=== PATIENT | male | born 2000 | race African-American/Black ===

== ENCOUNTER 2018-07-26 14:04 | Observation (INO) | payer OTHER ==
[2018-07-26] MEDS ORDERED: SODIUM CHLORIDE 0.9% 1,000 ML IV STA (14:56)
[2018-07-26] MEDS ORDERED: KETOROLAC 30 MG/ML 1 ML VIAL IVP STA (14:56)
--- NOTE | 2018-07-26 14:59 | ED ---
General Adult HPI <Leander Amado - Last Filed: 07/26/18 19:29> - General Source: patient, RN notes reviewed Mode of arrival: ambulatory Limitations: no limitations <Jose cSales - Last Filed: 07/27/18 00:14> - General Chief complaint: Abdominal Pain Stated complaint: Abd pain Time Seen by Provider: 07/26/18 14:52 - History of Present Illness Initial comments: 18-year-old male presents to the emergency department for a chief complaint of abdominal pain times one day. Patient states he woke up with this pain. Patient describes as a sharp shooting pain in the left lower quadrant. States he had a normal bowel movement yesterday. No hematochezia or melena. No diarrhea or nausea or vomiting. Patient states pain is better when he is lying still and worse when he is up moving and when he extends his abdomen. Denies any trauma. Patient denies any dysuria or hematuria. No fevers or chills. Patient denies any history of abdominal pathologies or surgeries.Patient has no other complaints at this time including shortness of breath, chest pain, abdominal pain, nausea or vomiting, headache, or visual changes. (Jose Scales) - Related Data Home Medications Medication Instructions Recorded Confirmed No Known Home Medications 07/26/18 07/26/18 Allergies Allergy/AdvReac Type Severity Reaction Status Date / Time morphine Allergy Unknown Verified 07/26/18 15:15 oxycodone [From OxyContin] Allergy Unknown Verified 07/26/18 15:15 Review of Systems ROS Other: All systems not noted in ROS Statement are negative. <Leander Amado - Last Filed: 07/26/18 19:29> ROS Other: All systems not noted in ROS Statement are negative. <Jose Scales - Last Filed: 07/27/18 00:14> ROS Statement: Those systems with pertinent positive or pertinent negative responses have been documented in the HPI. Past Medical History History of Any Multi-Drug Resistant Organisms: None Reported Past Surgical History: Orthopedic Surgery Past Psychological History: No Psychological Hx Reported Smoking Status: Current every day smoker Past Alcohol Use History: Occasional Past Drug Use History: None Reported <Jose Scales - Last Filed: 07/27/18 00:14> General Exam Limitations: no limitations General appearance: alert, in no apparent distress Head exam: Present: atraumatic, normocephalic, normal inspection Eye exam: Present: normal appearance, PERRL, EOMI. Absent: scleral icterus, c onjunctival injection, periorbital swelling ENT exam: Present: normal exam, mucous membranes moist Neck exam: Present: normal inspection, full ROM. Absent: tenderness, meningismus, lymphadenopathy Respiratory exam: Present: normal lung sounds bilaterally. Absent: respiratory distress, wheezes, rales, rhonchi, stridor Cardiovascular Exam: Present: regular rate, normal rhythm, normal heart sounds. Absent: systolic murmur, diastolic murmur, rubs, gallop, clicks GI/Abdominal exam: Present: soft, tenderness (minimal LLQ and suprapubic tenderness without guarding. No RLQ tenderness or upper abdominal tenderness), normal bowel sounds. Absent: distended, guarding, rebound, rigid Expanded GI/Abdominal exam: Absent: psoas sign, obturator sign, heel tap sign, Mcmillan's sign, Rovsing's sign, tenderness at McBurney's Point <Jose Scales - Last Filed: 07/27/18 00:14> Course <Leander Amado - Last Filed: 07/26/18 19:29> Vital Signs 07/26/18 07/26/18 07/26/18 14:13 17:10 17:55 Temperature 98.9 F 98.7 F Pulse Rate 102 H 100 Respiratory 18 18 Rate Blood Pressure 164/90 144/78 O2 Sat by Pulse 99 98 Oximetry 07/26/18 07/26/18 18:35 18:39 Temperature Pulse Rate 100 Respiratory 17 18 Rate Blood Pressure 140/80 O2 Sat by Pulse 99 Oximetry - Reevaluation(s) Reevaluation #1: 07/26/18 19:[address]chugh following CT results. CT results are nonspecific however do question appendicitis. CT report please. Case was also discussed with Dr. Amezcua, who would like computed tomography scan with oral contrast and will follow-up with results and patient. (Leander Amado) Medical Decision Making - Lab Data Result diagrams: 07/26/18 15:58 07/26/18 15:58 <Leander Amado - Last Filed: 07/26/18 19:29> - Lab Data Result diagrams: 07/26/18 15:58 07/26/18 15:58 <Jose Scales - Last Filed: 07/27/18 00:14> - Medical Decision Making patient reevaluated by myself, Dr. Amado. Patient states onset of symptoms was just today. Abdomen is soft with mild to moderate tenderness in the suprapubic region. Patient does have elevated white blood cell count and some thrombocytopenia. Urinalysis appears as urinary tract infection. Computed abby graphy scan of the abdomen pelvis will be ordered to rule out any other cause of patient's symptoms. Case was discussed with Dr. Mchugh, covering for hospital call, who will admit. Patient denies any genital pain or swelling or redness. (Leander Amado) 18-year-old male presents to the emergency determine for chief complaint of abdominal pain times one day. Describes it as a sharp shooting pain in the left lower quadrant. States he is having normal bowel movements without diarrhea. No nausea or vomiting. No fevers or chills. Patient does have suprapubic and left lower quadrant tenderness noted. BC does show a white count of 33.7 with a platelet count of 96. CMP is unremarkable. Urine shows moderate blood with large leukocyte esterase and greater than 182 white cells and red blood cells. Urine was cultured and gonorrhea and Chlamydia was added. She was started on Rocephin and CT abdomen and pelvis was ordered. 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 These results were discussed with Dr. Mchugh. Surgery was consulted. Unasyn was started. Repeat CT is pending. (Jose Scales) - Lab Data Lab Results 07/26/18 07/26/18 07/26/18 Range/Units 15:58 15:58 16:43 WBC 33.7 H (4.0-11.0) k/uL RBC 5.28 (4.30-5.90) m/uL Hgb 14.8 (13.0-17.5) gm/dL Hct 45.2 (39.0-53.0) % MCV 85.6 (80.0-100.0) fL MCH 28.1 (25.0-35.0) pg MCHC 32.8 (31.0-37.0) g/dL RDW 15.6 H (11.5-15.5) % Plt Count 96 L (150-450) k/uL Neutrophils % 90 % Lymphocytes % 4 % Monocytes % 4 % Eosinophils % 2 % Basophils % 0 % Neutrophils # 30.3 H (1.3-7.7) k/uL Lymphocytes # 1.3 (1.0-4.8) k/uL Monocytes # 1.2 H (0-1.0) k/uL Eosinophils # 0.7 (0-0.7) k/uL Basophils # 0.1 (0-0.2) k/uL Sodium 139 (137-145) mmol/L Potassium 4.4 (3.5-5.1) mmol/L Chloride 106 (98-107) mmol/L Carbon Dioxide 21 L (22-30) mmol/L Anion Gap 12 mmol/L BUN 11 (9-20) mg/dL Creatinine 0.50 L (0.66-1.25) mg/dL Est GFR (CKD-EPI)AfAm >90 (>60 ml/min/1.73 sqM) Est GFR (CKD-EPI)NonAf >90 (>60 ml/min/1.73 sqM) Glucose 75 (74-99) mg/dL Calcium 9.8 (8.4-10.2) mg/dL Total Bilirubin 0.9 (0.2-1.3) mg/dL AST 24 (17-59) U/L ALT 15 L (21-72) U/L Alkaline Phosphatase 110 (38-126) U/L Total Protein 8.6 H (6.3-8.2) g/dL Albumin 4.6 (3.5-5.0) g/dL Amylase 63 (30-110) U/L Lipase 65 (23-300) U/L Urine Color Yellow Urine Appearance Turbid (Clear) Urine pH 7.5 (5.0-8.0) Ur Specific [place] 1.022 (1.001-1.035) Urine Protein 2+ H (Negative) Urine Glucose (UA) Negative (Negative) Urine Ketones 3+ H (Negative) Urine Blood Moderate H (Negative) Urine Nitrite Negative (Negative) Urine Bilirubin Negative (Negative) Urine Urobilinogen <2.0 (<2.0) mg/dL Ur Leukocyte Esterase Large H (Negative) Urine RBC >182 H (0-5) /hpf Urine WBC >182 H (0-5) /hpf Urine Mucus Rare H (None) /hpf Disposition <Leander Amado - Last Filed: 07/26/18 19:29> Is patient prescribed a controlled substance at d/c from ED?: No Time of Disposition: 18:18 <Jose Scales - Last Filed: 07/27/18 00:14> Clinical Impression: Urinary tract infection, Leukocytosis Disposition: ADMITTED IP TO THIS HOSP Condition: Fair
[2018-07-26 16:07] LABS: Basophils # (A) 0.1 k/uL (0-0.2); Basophils % (A) 0 %; Eosinophils # (A) 0.7 k/uL (0-0.7); Eosinophils % (A) 2 %; HCT 45.2 % (39.0-53.0); HGB 14.8 gm/dL (13.0-17.5); Lymphocytes # (A) 1.3 k/uL (1.0-4.8); Lymphocytes % (A) 4 %; MCH 28.1 pg (25.0-35.0); MCHC 32.8 g/dL (31.0-37.0); MCV 85.6 fL (80.0-100.0); Mean Platelet Volume 6.9; Monocytes # (A) 1.2 k/uL (0-1.0); Monocytes % (A) 4 %; Neutrophils # (A) 30.3 k/uL (1.3-7.7); Neutrophils % (A) 90 %; RBC 5.28 m/uL (4.30-5.90); RDW 15.6 % (11.5-15.5); WBC 33.7 k/uL (4.0-11.0)
[2018-07-26 16:16] LABS: ALT 15 U/L (21-72); AST 24 U/L (17-59); Albumin 4.6 g/dL (3.5-5.0); Alkaline Phosphatase 110 U/L (38-126); Amylase 63 U/L (30-110); Anion Gap 12 mmol/L; Blood Urea Nitrogen 11 mg/dL (9-20); Calcium 9.8 mg/dL (8.4-10.2); Carbon Dioxide 21 mmol/L (22-30); Chloride 106 mmol/L (98-107); Glucose 75 mg/dL (74-99); Lipase 65 U/L (23-300); Potassium 4.4 mmol/L (3.5-5.1); Sodium 139 mmol/L (137-145); Total Bilirubin 0.9 mg/dL (0.2-1.3); Total Protein 8.6 g/dL (6.3-8.2)
--- NOTE | 2018-07-26 16:34 | XR ---
EXAMINATION TYPE: XR KUB DATE OF EXAM: 07/26/2018 COMPARISON: 03-14 HISTORY: Pain TECHNIQUE: Upright single abdominal pelvic radiograph FINDINGS: Visualized lung bases and pleural spaces are negative. There is no pneumoperitoneum. There is no pneumatosis. The bowel gas pattern is within normal limits. There are no definite acute skeleta l or soft tissue findings. IMPRESSION: Negative examination.
[2018-07-26 17:00] LABS: Platelet Count 96 k/uL (150-450)
[2018-07-26 17:01] LABS: Appearance,Urine Turbid (Clear); Bilirubin,Urine Negative (Negative); Blood,Urine Moderate (Negative); Color,Urine Yellow; Glucose,Urine (UA) Negative (Negative); Ketones,Urine 3+ (Negative); Leukocyte Esterase,Urine Large (Negative); Mucus,Urine Rare /hpf; Nitrite,Urine Negative (Negative); PH, Urine 7.5 (5.0-8.0); Protein,Urine 2+ (Negative); RBC,Urine >182 /hpf (0-5); Specific Gravity,Urine 1.022 (1.001-1.035); Urobilinogen,Urine <2.0 mg/dL (<2.0); WBC,Urine >182 /hpf (0-5)
[2018-07-26] MEDS ORDERED: cefTRIAXone IN SWFI 1,000 MG/10 ML SYRINGE IVP STA (17:03)
[2018-07-26] MEDS ORDERED: NALOXONE 0.4 MG/ML 1 ML VIAL IV PRN (17:46)
[2018-07-26] MEDS ORDERED: ONDANSETRON 4 MG/2 ML VIAL IVP PRN (17:46)
[2018-07-26] MEDS ORDERED: HYDROmorphone 0.5 MG/0.5 ML SYRINGE IVP STA (17:47)
[2018-07-26] MEDS: SODIUM CHLORIDE 0.9% 1,000 ML IV SCH (18:36)
--- NOTE | 2018-07-26 19:05 | P.HPIM ---
History of Present Illness Patient is a very pleasant 18-year-old gentleman came in with comments of abdominal pain in the left lower quadrant and subpubic area with significantly abnormal urine with large leukocyte esterase increased white blood cell count in creased WBC count. 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 Patient also denied any dysuria denied any fever chills patient and patient pain is better controlled. His pain is sharp shooting moderate to severe denied any diarrhea denied any nausea vomiting. Review of Systems REVIEW OF SYSTEMS: CONSTITUTIONAL: No fever, no malaise, no fatigue. HEENT: No recent visual problems or hearing problems. Denied any sore throat. CARDIOVASCULAR: No chest pain, orthopnea, PND, no palpitations, no syncope. PULMONARY: No shortness of breath, no cough, no hemoptysis. GASTROINTESTINAL: As mentioned in HPI NEUROLOGICAL: No headaches, no weakness, no numbness. HEMATOLOGICAL: Denies any bleeding or petechiae. GENITOURINARY: Denies any burning micturition, frequency, or urgency. MUSCULOSKELETAL/RHEUMATOLOGICAL: Denies any joint pain, swelling, or any muscle pain. ENDOCRINE: Denies any polyuria or polydipsia. The rest of the 14-point review of systems is negative. Past Medical History History of Any Multi-Drug Resistant Organisms: None Reported Past Surgical History: Orthopedic Surgery Past Psychological History: No Psychological Hx Reported Smoking Status: Current every day smoker Past Alcohol Use History: Occasional Past Drug Use History: None Reported Medications and Allergies Home Medications Medication Instructions Recorded Confirmed Type No Known Home Medications 07/26/18 07/26/18 History Allergies Allergy/AdvReac Type Severity Reaction Status Date / Time morphine Allergy Unknown Verified 07/26/18 15:15 oxycodone [From OxyContin] Allergy Unknown Verified 07/26/18 15:15 Physical Exam Vitals: Vital Signs Temp Pulse Resp BP Pulse Ox 07/26/18 18:39 100 18 140/80 99 07/26/18 17:55 98.7 F 07/26/18 17:10 100 18 144/78 98 07/26/18 14:13 98.9 F 102 H 18 164/90 99 Intake and Output 07/26/18 07/26/18 07/26/18 06:59 14:59 22:59 Other: Weight 44.452 kg PHYSICAL EXAMINATION: GENERAL: The patient is alert and oriented x3, not in any acute distress. Thin built HEENT: Pupils are round and equally reacting to light. EOMI. No scleral icterus. No conjunctival pallor. Normocephalic, atraumatic. No pharyngeal erythema. No thyromegaly. CARDIOVASCULAR: S1 and S2 present. No murmurs, rubs, or gallops. PULMONARY: Chest is clear to auscultation, no wheezing or crackles. ABDOMEN: Soft, nontender, nondistended, normoactive bowel sounds. No palpable organomegaly. MUSCULOSKELETAL: No joint swelling or deformity. EXTREMITIES: Patient has absent radius, TAR syndrome NEUROLOGICAL: Gross neurological examination did not reveal any focal deficits. SKIN: No rashes. Results CBC & Chem 7: 07/26/18 15:58 07/26/18 15:58 Labs: Abnormal Lab Results - Last 24 Hours (Table) 07/26/18 07/26/18 07/26/18 Range/Units 15:58 15:58 16:43 WBC 33.7 H (4.0-11.0) k/uL RDW 15.6 H (11.5-15.5) % Plt Count 96 L (150-450) k/uL Neutrophils # 30.3 H (1.3-7.7) k/uL Monocytes # 1.2 H (0-1.0) k/uL Carbon Dioxide 21 L (22-30) mmol/L Creatinine 0.50 L (0.66-1.25) mg/dL ALT 15 L (21-72) U/L Total Protein 8.6 H (6.3-8.2) g/dL Urine Protein 2+ H (Negative) Urine Ketones 3+ H (Negative) Urine Blood Moderate H (Negative) Ur Leukocyte Esterase Large H (Negative) Urine RBC >182 H (0-5) /hpf Urine WBC >182 H (0-5) /hpf Urine Mucus Rare H (None) /hpf Assessment and Plan Plan: -Sepsis: Cannot rule out urinary tract infection but we need to rule out an abscess in the abdomen as well. Patients with the thrombocytopenia and absent radius syndrome unknown to have renal abnormalities that can lead to urinary tract infection. Will also rule out any significant abscess although patient does not have any rebound or rigidity. Obtaining a CAT scan of the abdomen can you with Toradol and Rocephin for now -Leukocytosis secondary to infection as mentioned above -Thrombocytopenia secondary to thrombocytopenia absent radius syndrome patient does not have any petechiae or bleeding at this time. -Nicotine abuse: Counseling was provided
--- NOTE | 2018-07-26 19:10 | CT ---
EXAMINATION TYPE: CT abdomen pelvis w con DATE OF EXAM: 07/26/2018 COMPARISON: None HISTORY: Pelvic pain with diarrhea. Known UTI CT DLP: 415 mGycm Automated exposure control for dose reduction was used. TECHNIQUE: Helical acquisition of images was performed from the lung bases through the pelvis. CONTRAST: Performed without Oral Contrast and with IV Contrast, patient injected with 80 mL of Isovue 370. FINDINGS: LUNG BASES: No significant abnormality is appreciated. LIVER/GB: No significant abnormality is appreciated. PANCREAS: No significant abnormality is seen. SPLEEN: No significant abnormality is seen. ADRENALS: No significant abnormality is seen. KIDNEYS: There is absence of the right kidney, but the right adrenal is present. The left kidney is h ypertrophied, likely compensatory. Left kidney measures approximately 11 x 7 x 6 cm and has normal ap pearance. RETROPERITONEAL ADENOPATHY: None visualized REPRODUCTIVE ORGANS: No significant abnormality is seen URINARY BLADDER: No significant abnormality is seen. PELVIC ADENOPATHY: None visualized. OSSEOUS STRUCTURES: No significant abnormality is seen. BOWEL: There is a fine reticular pattern of increased density in the right lower quadrant, anterior to the right lateral conal fascia. This is associated with small volume of peritoneal fluid deep with in the pelvis, greater on the right. The appendix cannot be visualized due to crowded unopacified bow el loops in the right lower quadrant, but appears to be in the lower pelvis near McBurney point. Ther e is no bowel obstruction. No pneumatosis or pneumoperitoneum. OTHER: There are no acute vascular findings. IMPRESSION: 1) Findings suspicious for a clinical diagnosis of appendicitis. If these nonspecific findings kate borate clinically, would advise oral contrast and 1.[address] imaging of the pelvis with 1 mm slice axial imaging. 2) Absent right kidney.
[2018-07-26] MEDS: IOPAMIDOL-300 CONTRAST 30 ML VIAL (ORAL USE) PO PRN ×2 (20:00→20:30)
--- NOTE | 2018-07-26 21:22 | P.GSCN ---
History of Present Illness Consult date: 07/26/18 History of present illness: 18-year-old male presented to the emergency department with complaints of abdominal pain in the left lower quadrant and suprapubic area. He states that the pain began this morning soon after he woke up. He denies having any bowel movement today. He denies any nausea. He denies any emesis. He does believe that his appetite is slightly decreased. He states his last bowel movement was yesterday. He denies any fevers. He denies any dysuria. He denies any hematuria. He denies any shortness of breath. He has no additional complaints at this time. CT of the abdomen and pelvis was performed by the emergency department and the Tho did suggest that the appendix cannot be visualized due to crowded unopacified bowel loops in the right lower quadrant. Due to this finding, the impression was read as finding suspicious for clinical diagnosis of appendicitis. 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 He denies any right lower quadrant pain. Review of Systems All systems: negative Past Medical History Additional Past Medical History / Comment(s): absent radious syndrome. History of Any Multi-Drug Resistant Organisms: None Reported Past Surgical History: Orthopedic Surgery Additional Past Surgical History / Comment(s): 8 ortho surgeries on BLLE (legs). Past Anesthesia/Blood Transfusion Reactions: No Reported Reaction Past Psychological History: No Psychological Hx Reported Smoking Status: Current every day smoker Past Alcohol Use History: Occasional Past Drug Use History: None Reported Medications and Allergies Home Medications Medication Instructions Recorded Confirmed Type No Known Home Medications 07/26/18 07/26/18 History Allergies Allergy/AdvReac Type Severity Reaction Status Date / Time morphine Allergy Unknown Verified 07/26/18 15:15 oxycodone [From OxyContin] Allergy Unknown Verified 07/26/18 15:15 Surgical - Exam Osteopathic Statement: *. No significant issues noted on an osteopathic structural exam other than those noted in the History and Physical/Consult. Vital Signs Temp Pulse Resp BP Pulse Ox 98.9 F 102 H 18 164/90 99 07/26/18 14:13 07/26/18 14:13 07/26/18 14:13 07/26/18 14:13 07/26/18 14:13 - General well nourished, no distress - Eyes PERRL - ENT normal mucosa, no hearing loss - Neck no masses, trachea midline - Respiratory No difficulty with respiration - Abdomen Soft, mild tenderness to palpation in the left lower quadrant and suprapubic region, no tenderness in the right lower quadrant palpation, no tenderness throughout the abdomen to percussion, nondistended, no rebound, no guarding - Psychiatric oriented to time, oriented to person, oriented to place Results - Labs 07/26/18 15:58 07/26/18 15:58 Abnormal Lab Results - Last 24 Hours (Table) 07/26/18 07/26/18 07/26/18 Range/Units 15:58 15:58 16:43 WBC 33.7 H (4.0-11.0) k/uL RDW 15.6 H (11.5-15.5) % Plt Count 96 L (150-450) k/uL Neutrophils # 30.3 H (1.3-7.7) k/uL Monocytes # 1.2 H (0-1.0) k/uL Carbon Dioxide 21 L (22-30) mmol/L Creatinine 0.50 L (0.66-1.25) mg/dL ALT 15 L (21-72) U/L Total Protein 8.6 H (6.3-8.2) g/dL Urine Protein 2+ H (Negative) Urine Ketones 3+ H (Negative) Urine Blood Moderate H (Negative) Ur Leukocyte Esterase Large H (Negative) Urine RBC >182 H (0-5) /hpf Urine WBC >182 H (0-5) /hpf Urine Mucus Rare H (None) /hpf Diabetes panel 07/26/18 Range/Units 15:58 Sodium 139 (137-145) mmol/L Potassium 4.4 (3.5-5.1) mmol/L Chloride 106 (98-107) mmol/L Carbon Dioxide 21 L (22-30) mmol/L BUN 11 (9-20) mg/dL Creatinine 0.50 L (0.66-1.25) mg/dL Glucose 75 (74-99) mg/dL Calcium 9.8 (8.4-10.2) mg/dL AST 24 (17-59) U/L ALT 15 L (21-72) U/L Alkaline Phosphatase 110 (38-126) U/L Total Protein 8.6 H (6.3-8.2) g/dL Albumin 4.6 (3.5-5.0) g/dL Calcium panel 07/26/18 Range/Units 15:58 Calcium 9.8 (8.4-10.2) mg/dL Albumin 4.6 (3.5-5.0) g/dL Pituitary panel 07/26/18 Range/Units 15:58 Sodium 139 (137-145) mmol/L Potassium 4.4 (3.5-5.1) mmol/L Chloride 106 (98-107) mmol/L Carbon Dioxide 21 L (22-30) mmol/L BUN 11 (9-20) mg/dL Creatinine 0.50 L (0.66-1.25) mg/dL Glucose 75 (74-99) mg/dL Calcium 9.8 (8.4-10.2) mg/dL Adrenal panel 07/26/18 Range/Units 15:58 Sodium 139 (137-145) mmol/L Potassium 4.4 (3.5-5.1) mmol/L Chloride 106 (98-107) mmol/L Carbon Dioxide 21 L (22-30) mmol/L BUN 11 (9-20) mg/dL Creatinine 0.50 L (0.66-1.25) mg/dL Glucose 75 (74-99) mg/dL Calcium 9.8 (8.4-10.2) mg/dL Total Bilirubin 0.9 (0.2-1.3) mg/dL AST 24 (17-59) U/L ALT 15 L (21-72) U/L Alkaline Phosphatase 110 (38-126) U/L Total Protein 8.6 H (6.3-8.2) g/dL Albumin 4.6 (3.5-5.0) g/dL - Imaging CT scan - abdomen: report reviewed, image reviewed (Report reviewed of appendix cannot be visualized due to carotid unopacified bowel loops in the right lower quadrant. Impression noted of finding suspicious for a clinical diagnosis of appendicitis.) Assessment and Plan (1) Abdominal pain Narrative/Plan: 18-year-old male with leukocytosis and abdominal pain - I did review the CT of the abdomen and pelvis and did review the results per the radiologist of a appendix not being visualized, however finding suspicious for clinical diagnosis of appendicitis. The radiologist did recommend a repeat CT of the pelvis 1.5 hours after oral contrast is administered. We will perform this study for further evaluation as the patient does not clinically appear to have appendicitis. He does not have tenderness in the right lower quadrant. He is nontender to percussion and does not have any rebound or guarding. After e valuation of the urinalysis, patient does appear to have urinary tract infection. - Further surgical recommendations after repeat computed tomography scan of the pelvis, per radiology - Keep nothing by mouth for now Current Visit: Yes Status: Acute Code(s): R10.9 - UNSPECIFIED ABDOMINAL PAIN SNOMED Code(s): 80209360
--- NOTE | 2018-07-26 21:37 | CT ---
EXAMINATION TYPE: CT pelvis wo IV con, but with oral con DATE: 07/26/2008 at 8:59 PM HISTORY: RLQ pain COMPARISON: Follow-up CT sequence; the initial CT 16 6:[address] DLP: 196.3 mGycm Automated exposure control for dose reduction was used. FINDINGS: The oral contrast opacifies the stomach, small bowel, and colon to the level of the splenic flexure. Oral contrast also fills the appendix, which has normal appearance. The left ureter is opacified throughout its extent, in the upper and lower systems are normal appeara nce. Remainder of the pelvic contents are unremarkable. No incidentals. IMPRESSION: OVERALL CT IMPRESSION IS NO ACUTE PROCESS. SPECIFICALLY, NEGATIVE FOR APPENDICITIS.
[2018-07-26] MEDS ORDERED: KETOROLAC 30 MG/ML 1 ML VIAL IVP PRN (22:00)
[2018-07-26] MEDS: AMPICILLIN-SULBACTAM 3 GM in SODIUM CHLORIDE 0.9% 100 ML IVPB SCH (22:00)
[2018-07-26] MEDS: FAMOTIDINE 20 MG TAB PO SCH (22:15)
[2018-07-27] MEDS: AMPICILLIN-SULBACTAM 3 GM in SODIUM CHLORIDE 0.9% 100 ML IVPB SCH ×4 (00:30→20:08)
[2018-07-27] MEDS: SODIUM CHLORIDE 0.9% 1,000 ML IV SCH ×2 (02:48→20:09)
[2018-07-27] MEDS: FAMOTIDINE 20 MG TAB PO SCH ×2 (10:51→20:08)
[2018-07-27 12:01] VITALS: BMI 18.5
[2018-07-27 12:40] LABS: Basophils # (A) 0.1 k/uL (0-0.2); Basophils % (A) 0 %; Eosinophils # (A) 0.4 k/uL (0-0.7); Eosinophils % (A) 2 %; HCT 39.6 % (39.0-53.0); HGB 13.2 gm/dL (13.0-17.5); Lymphocytes # (A) 1.8 k/uL (1.0-4.8); Lymphocytes % (A) 7 %; MCH 28.2 pg (25.0-35.0); MCHC 33.2 g/dL (31.0-37.0); MCV 84.8 fL (80.0-100.0); Mean Platelet Volume 8.3; Monocytes # (A) 1.1 k/uL (0-1.0); Monocytes % (A) 4 %; Neutrophils # (A) 21.9 k/uL (1.3-7.7); Neutrophils % (A) 86 %; RBC 4.67 m/uL (4.30-5.90); RDW 15.5 % (11.5-15.5); WBC 25.4 k/uL (4.0-11.0)
[2018-07-27 12:51] LABS: Anion Gap 7 mmol/L; Blood Urea Nitrogen 6 mg/dL (9-20); Calcium 9.1 mg/dL (8.4-10.2); Carbon Dioxide 21 mmol/L (22-30); Chloride 111 mmol/L (98-107); Glucose 97 mg/dL (74-99); Sodium 139 mmol/L (137-145)
[2018-07-27 12:58] LABS: Platelet Count 86 k/uL (150-450)
[2018-07-27 13:20] LABS: Potassium 4.7 mmol/L (3.5-5.1)
[2018-07-27 14:47] LABS: C. trachomatis,PCR Negative (Neg,Equiv); Chlamydia trachomatis Source Urine; N. gonorrhoeae,PCR Positive (Neg,Equiv); Neisseria Source Urine
--- NOTE | 2018-07-27 16:20 | P.PN ---
Subjective Patient came in with possible urinary tract infection leukocytosis leukocytosis improving urine cultures are pending. Initial CAT scan was read as possibility of appendicitis please refer to Gen. surgery dictation regarding this patient clinically does not appear to have appendicitis. No appendectomy is being planned at this time. Patient wanted to be discharged feeling well. I will wait for urine cultures and tomorrow morning if I don't get cultures tomorrow patient will be discharged on a brick antibiotics and will follow cultures later on and if needed will change the antibiotic accordingly patient is presently on Unasyn which will be continued Constitutional: Denied any fatigue denied any fever. Cardio vascular: denied any chest pain, palpitations Gastrointestinal denied any nausea vomiting Pulmonary: Denied any shortness of breath cough Neurologic denied any new focal deficits All inpatient medications were reviewed and appropriate changes in these medications as dictated in the interval history and assessment and plan. Objective - Vital Signs Vital signs: Vital Signs Temp 98.3 F 07/27/18 08:00 Pulse 83 07/27/18 08:00 Resp 16 07/27/18 08:00 BP 122/64 07/27/18 08:00 Pulse Ox 97 07/27/18 08:00 Intake & Output 07/26/18 07/27/18 07/27/18 18:59 06:59 18:59 Weight 44.452 kg 44.452 kg Other: Voiding Method Toilet Toilet Urinal # Voids 1 1 1 - Exam PHYSICAL EXAMINATION: GENERAL: The patient is alert and oriented x3, not in any acute distress. Thin built HEENT: Pupils are round and equally reacting to light. EOMI. No scleral icterus. No conjunctival pallor. Normocephalic, atraumatic. No pharyngeal erythema. No thyromegaly. CARDIOVASCULAR: S1 and S2 present. No murmurs, rubs, or gallops. PULMONARY: Chest is clear to auscultation, no wheezing or crackles. ABDOMEN: Soft, nontender, nondistended, normoactive bowel sounds. No palpable organomegaly. MUSCULOSKELETAL: No joint swelling or deformity. EXTREMITIES: Patient has absent radius, TAR syndrome NEUROLOGICAL: Gross neurological examination did not reveal any focal deficits. SKIN: No rashes. - Labs CBC & Chem 7: 07/27/18 11:52 07/27/18 11:52 Labs: Abnormal Lab Results - Last 24 Hours (Table) 07/26/18 07/26/18 07/26/18 Range/Units 15:58 15:58 16:43 WBC 33.7 H (4.0-11.0) k/uL RDW 15.6 H (11.5-15.5) % Plt Count 96 L (150-450) k/uL Neutrophils # 30.3 H (1.3-7.7) k/uL Monocytes # 1.2 H (0-1.0) k/uL Chloride (98-107) mmol/L Carbon Dioxide 21 L (22-30) mmol/L BUN (9-20) mg/dL Creatinine 0.50 L (0.66-1.25) mg/dL ALT 15 L (21-72) U/L Total Protein 8.6 H (6.3-8.2) g/dL Urine Protein 2+ H (Negative) Urine Ketones 3+ H (Negative) Urine Blood Moderate H (Negative) Ur Leukocyte Esterase Large H (Negative) Urine RBC >182 H (0-5) /hpf Urine WBC >182 H (0-5) /hpf Urine Mucus Rare H (None) /hpf N.gonorrhoeae DNA Probe (Neg,Equiv) 07/26/18 07/27/18 07/27/18 Range/Units 16:43 11:52 11:52 WBC 25.4 H (4.0-11.0) k/uL RDW (11.5-15.5) % Plt Count 86 L (150-450) k/uL Neutrophils # 21.9 H (1.3-7.7) k/uL Monocytes # 1.1 H (0-1.0) k/uL Chloride 111 H (98-107) mmol/L Carbon Dioxide 21 L (22-30) mmol/L BUN 6 L (9-20) mg/dL Creatinine 0.42 L (0.66-1.25) mg/dL ALT (21-72) U/L Total Protein (6.3-8.2) g/dL Urine Protein (Negative) Urine Ketones (Negative) Urine Blood (Negative) Ur Leukocyte Esterase (Negative) Urine RBC (0-5) /hpf Urine WBC (0-5) /hpf Urine Mucus (None) /hpf N.gonorrhoeae DNA Probe Positive H (Neg,Equiv) Microbiology - Last 24 Hours (Table) 07/26/18 16:43 Urine Culture - Preliminary Urine,Voided Assessment and Plan Plan: -Sepsis: secondary to urinary tract infection 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 Awaiting urine cultures continue with Unasyn -Leukocytosis secondary to infection as mentioned above -Thrombocytopenia secondary to thrombocytopenia absent radius syndrome patient does not have any petechiae or bleeding at this time. -Nicotine abuse: Counseling was provided
[2018-07-28] MEDS: AMPICILLIN-SULBACTAM 3 GM in SODIUM CHLORIDE 0.9% 100 ML IVPB SCH ×3 (01:36→12:10)
[2018-07-28 06:31] LABS: HCT 39.1 % (39.0-53.0); MCH 28.8 pg (25.0-35.0); MCHC 33.2 g/dL (31.0-37.0); MCV 86.8 fL (80.0-100.0); Mean Platelet Volume 7.4; RBC 4.51 m/uL (4.30-5.90); RDW 15.6 % (11.5-15.5); WBC 19.5 k/uL (4.0-11.0)
[2018-07-28 06:39] LABS: Platelet Count 91 k/uL (150-450)
[2018-07-28 06:43] LABS: Anion Gap 9 mmol/L; Blood Urea Nitrogen 5 mg/dL (9-20); Carbon Dioxide 22 mmol/L (22-30); Chloride 109 mmol/L (98-107); Glucose 76 mg/dL (74-99); Sodium 140 mmol/L (137-145)
[2018-07-28 08:18] VITALS: BP 148/82; PULSE 64; RESP 17; TEMP 98.4
[2018-07-28] MEDS: FAMOTIDINE 20 MG TAB PO SCH (09:19)
[2018-07-28] MEDS: SODIUM CHLORIDE 0.9% 1,000 ML IV SCH (09:19)
--- NOTE | 2018-07-28 14:00 | P.DS ---
Providers Date of admission: 07/26/18 17:37 Attending physician: Tad Mchugh Consults: 07/26/18 19:31 Consult Physician Urgent Consulting Provider: Espinoza Amezcua Consult Reason/Comments: abdominal pain Do you want consulting provider notified?: Already Contacted Primary care physician: Stated None Hospital Course: Patient came in with possible urinary tract infection leukocytosis leukocytosis improving urine cultures are pending. Initial CAT scan was read as possibility of appendicitis please refer to Gen. surgery dictation regarding this patient clinically does not appear to have appendicitis. No appendectomy is being planned at this time. Patient wanted to be discharged feeling well. I will wait for urine cultures and tomorrow morning if I don't get cultures tomorrow patient will be discharged on a brick antibiotics and will follow cultures later on and if needed will change the antibiotic accordingly patient is presently on Unasyn which will be continued. 07/28/2018 Urine cultures are negative. Patient will be discharged on February can't biotic ciprofloxacin for 3-5 days. Patient is feeling better no pain. PHYSICAL EXAMINATION: GENERAL: The patient is alert and oriented x3, not in any acute distress. Well developed, well nourished. HEENT: Pupils are round and equally reacting to light. EOMI. No scleral icterus. No conjunctival pallor. Normocephalic, atraumatic. No pharyngeal erythema. No thyromegaly. CARDIOVASCULAR: S1 and S2 present. No murmurs, rubs, or gallops. PULMONARY: Chest is clear to auscultation, no wheezing or crackles. ABDOMEN: Soft, nontender, nondistended, normoactive bowel sounds. No palpable organomegaly. MUSCULOSKELETAL: No joint swelling or deformity. EXTREMITIES: No cyanosis, clubbing, or pedal edema. NEUROLOGICAL: Gross neurological examination did not reveal any focal deficits. SKIN: No rashes. 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 -Leukocytosis secondary to infection as mentioned above, improved now -Thrombocytopenia secondary to thrombocytopenia absent radius syndrome patient does not have any petechiae or bleeding at this time. -Nicotine abuse: Counseling was provided Patient Condition at Discharge: Fair Plan - Discharge Summary Discharge Rx Participant: Yes New Discharge Prescriptions: New Ciprofloxacin HCl [Cipro] 500 mg PO Q12H 5 Days #10 tab Discharge Medication List Ciprofloxacin HCl [Cipro] 500 mg PO Q12H 5 Days #10 tab 07/28/18 [Rx] Follow up Appointment(s)/Referral(s): None,Stated [Primary Care Provider] - 1-2 days Patient Instructions/Handouts: Urinary Tract Infection in Men (DC) Discharge Disposition: HOME SELF-CARE
== END 2018-07-28 14:15 | disposition home or self-care (01) ==
LOC: EC 14:04 → 1SOBS 17:37
PROVIDERS: ADMIT Internal Medicine; ATTEND Internal Medicine
DX: A41.9 Sepsis, unspecified organism (principal); N39.0 Urinary tract infection, site not specified; Q87.2 Congenital malformation syndromes predominantly involving limbs; Q60.0 Renal agenesis, unilateral; D69.59 Other secondary thrombocytopenia; Z88.5 Allergy status to narcotic agent; F17.210 Nicotine dependence, cigarettes, uncomplicated
CPT/HCPCS: 96361 ×2; 96365; 96366 ×2; 96375; 99285; 36415; 80053; 80048 ×2; 82150; 83605; 83690; 85025 ×2; 85027; 81001; 87040; 87491; 87591; 87086; 87661; 74018; 72192; 74177; G0378 ×3; J0696; J1885; J0295 ×3; J1170; Q9967

== ENCOUNTER 2019-10-30 18:45 | Emergency (ER) | payer MEDICARE, OTHER ==
[2019-10-30 18:49] VITALS: PULSE 106; RESP 18; TEMP 98.7
--- NOTE | 2019-10-30 19:01 | ED ---
General Adult HPI - General Chief complaint: Urogenital Stated complaint: Male Time Seen by Provider: 10/30/19 18:55 Source: patient, RN notes reviewed Mode of arrival: ambulatory Limitations: no limitations - History of Present Illness Initial comments: Patient is a pleasant 19-year-old male presenting to the emergency Department with dysuria. No history of similar symptoms previously. Onset of symptoms was a couple days ago. Patient has dysuria. No discomfort other than with urination. Patient is urinating frequently and small amounts. No abdominal pain. No fever or vomiting. Patient states there is some possibility there could've been exposure to STD. - Related Data Previous Rx's Medication Instructions Recorded Ciprofloxacin HCl [Cipro] 500 mg PO Q12H 5 Days #10 tab 07/28/18 Sulfamethox-Tmp 800-160Mg [Bactrim 1 each PO Q12HR #20 tab 10/30/19 DS 800-160 mg] Allergies Allergy/AdvReac Type Severity Reaction Status Date / Time morphine Allergy Unknown Verified 10/30/19 18:49 oxycodone [From OxyContin] Allergy Unknown Verified 10/30/19 18:49 Review of Systems ROS Statement: Those systems with pertinent positive or pertinent negative responses have been documented in the HPI. ROS Other: All systems not noted in ROS Statement are negative. Constitutional: Denies: fever Eyes: Denies: eye pain ENT: Denies: ear pain Respiratory: Denies: cough Cardiovascular: Denies: chest pain Endocrine: Denies: fatigue Gastrointestinal: Denies: abdominal pain Genitourinary: Reports: as per HPI, urgency, dysuria, frequency Musculoskeletal: Denies: back pain Skin: Denies: rash Neurological: Denies: weakness Past Medical History Additional Past Medical History / Comment(s): absent radious syndrome. History of Any Multi-Drug Resistant Organisms: None Reported Past Surgical History: Orthopedic Surgery Additional Past Surgical History / Comment(s): 8 ortho surgeries on BLLE (legs). Past Anesthesia/Blood Transfusion Reactions: No Reported Reaction Past Psychological History: No Psychological Hx Reported Smoking Status: Current every day smoker Past Alcohol Use History: Occasional Past Drug Use History: None Reported General Exam Limitations: no limitations General appearance: alert, in no apparent distress Head exam: Present: normocephalic Eye exam: Present: normal appearance Neck exam: Present: normal inspection Respiratory exam: Present: normal lung sounds bilaterally Cardiovascular Exam: Present: regular rate, normal rhythm GI/Abdominal exam: Present: soft. Absent: tenderness exam: Present: normal inspection Extremities exam: Present: other (Arms are absent) Neurological exam: Present: alert Psychiatric exam: Present: normal affect, normal mood Skin exam: Present: normal color Course Vital Signs 10/30/19 18:45 Temperature 98.7 F Pulse Rate 106 H Respiratory 18 Rate O2 Sat by Pulse 99 Oximetry Medical Decision Making - Medical Decision Making Patient reevaluated and updated. - Lab Data Lab Results 10/30/19 Range/Units 19:01 Urine Color Yellow Urine Appearance Turbid (Clear) Urine pH 6.0 (5.0-8.0) Ur Specific [place] 1.020 (1.001-1.035) Urine Protein 1+ H (Negative) Urine Glucose (UA) Negative (Negative) Urine Ketones Negative (Negative) Urine Blood Moderate H (Negative) Urine Nitrite Negative (Negative) Urine Bilirubin Negative (Negative) Urine Urobilinogen 3.0 (<2.0) mg/dL Ur Leukocyte Esterase Large H (Negative) Urine RBC 23 H (0-5) /hpf Urine WBC >182 H (0-5) /hpf Urine WBC Clumps Many H (None) /hpf Disposition Clinical Impression: Urinary tract infection Disposition: HOME SELF-CARE Condition: Stable Instructions (If sedation given, give patient instructions): Urinary Tract Infection in Men (ED) Additional Instructions: Please follow-up with primary care physician in the next day or 2 for recheck. Have primary care physician review culture results. Return for vomiting, fevers, abdominal pain, worsening symptoms or other concerns. Prescription sent to [facility] on Prescriptions: Sulfamethox-Tmp 800-160Mg [Bactrim DS 800-160 mg] 1 each PO Q12HR #20 tab Is patient prescribed a controlled substance at d/c from ED?: No Referrals: Walter Crabtree [STAFF PHYSICIAN] - 1-2 days Time of Disposition: 19:56
[2019-10-30 19:23] LABS: Appearance,Urine Turbid (Clear); Bilirubin,Urine Negative (Negative); Blood,Urine Moderate (Negative); Color,Urine Yellow; Glucose,Urine (UA) Negative (Negative); Ketones,Urine Negative (Negative); Leukocyte Esterase,Urine Large (Negative); Nitrite,Urine Negative (Negative); Protein,Urine 1+ (Negative); RBC,Urine 23 /hpf (0-5); WBC,Urine >182 /hpf (0-5)
[2019-10-30] MEDS ORDERED: SULFAMETH-TMP DS STARTER PACK 2 TAB BTL PO STA (19:55)
== END 2019-10-30 20:10 | disposition home or self-care (01) ==
LOC: EC 18:45
DX: N39.0 Urinary tract infection, site not specified (principal); F17.200 Nicotine dependence, unspecified, uncomplicated; Z88.5 Allergy status to narcotic agent
CPT/HCPCS: 81001; 87086; 87491; 87591; 99283

== ENCOUNTER → 2019-11-04 | Outpatient (CLI) | payer MEDICARE, OTHER ==
[~2019-11-04] MED LIST: AZITHROMYCIN 500 MG TAB PO STA; cefTRIAXone 250 MG VIAL IM STA
== END | disposition home or self-care (01) ==
LOC: LABMAIN 13:31
PROVIDERS: ATTEND Emergency Medicine
DX: N39.0 Urinary tract infection, site not specified (principal)
CPT/HCPCS: 96372; J0696

== ENCOUNTER 2020-06-24 23:18 | Emergency (ER) | payer MEDICARE, OTHER ==
--- NOTE | 2020-06-25 00:58 | ED ---
Extremity Problem HPI - General Chief complaint: Extremity Problem,Nontraumatic Stated complaint: lt toe/foot swelling/numbness Time Seen by Provider: 06/25/20 00:16 Source: patient, RN notes reviewed, old records reviewed Mode of arrival: ambulatory Limitations: no limitations - History of Present Illness Initial comments: This is a 20-year-old male DF presents today for evaluation of left toe pain. Left foot pain. Patient denies any specific injury though he states he did wear a new pair of shoes is recently and had a sore on his foot from that. Patient has no redness or swelling to that area. He denies any trauma left foot. Otherwise patient has no complaints able to ambulate Callie to bear weight MD Complaint: extremity pain, other (left foot) -: hour(s) Location: left, toe History of Same: No -: Yes arthralgia Radiation: proximal Severity scale (1-10): 3 Quality: aching Consistency: constant Improves with: nothing Worsens with: nothing Associated Symptoms: other (none) - Related Data Previous Rx's Medication Instructions Recorded Ciprofloxacin HCl [Cipro] 500 mg PO Q12H 5 Days #10 tab 07/28/18 Sulfamethox-Tmp 800-160Mg [Bactrim 1 each PO Q12HR #20 tab 10/30/19 DS 800-160 mg] Allergies Allergy/AdvReac Type Severity Reaction Status Date / Time morphine Allergy Unknown Verified 06/24/20 23:30 oxycodone [From OxyContin] Allergy Unknown Verified 06/24/20 23:30 Review of Systems ROS Statement: Those systems with pertinent positive or pertinent negative responses have been documented in the HPI. ROS Other: All systems not noted in ROS Statement are negative. Past Medical History Additional Past Medical History / Comment(s): absent radious syndrome. History of Any Multi-Drug Resistant Organisms: None Reported Past Surgical History: Orthopedic Surgery Additional Past Surgical History / Comment(s): 8 ortho surgeries on BLLE (legs). Past Anesthesia/Blood Transfusion Reactions: No Reported Reaction Past Psychological History: No Psychological Hx Reported Smoking Status: Current every day smoker Past Alcohol Use History: Occasional Past Drug Use History: None Reported General Exam Limitations: no limitations General appearance: alert, in no apparent distress Head exam: Present: atraumatic, normocephalic, normal inspection Eye exam: Present: normal appearance, PERRL, EOMI. Absent: scleral icterus, conjunctival injection, periorbital swelling ENT exam: Present: normal exam, mucous membranes moist Neck exam: Present: normal inspection. Absent: tenderness, meningismus, lymphadenopathy Respiratory exam: Present: normal lung sounds bilaterally. Absent: respiratory distress, wheezes, rales, rhonchi, stridor Cardiovascular Exam: Present: regular rate, normal rhythm, normal heart sounds. Absent: systolic murmur, diastolic murmur, rubs, gallop, clicks GI/Abdominal exam: Present: soft, normal bowel sounds. Absent: distended, tenderness, guarding, rebound, rigid Extremities exam: Present: normal inspection, full ROM, normal capillary refill, other (Left fourth digit pain no significant tenderness noted, no ulcer noted, no erythema). Absent: tenderness, pedal edema, joint swelling, calf tenderness Back exam: Present: normal inspection Neurological exam: Present: alert, oriented X3, CN II-XII intact Psychiatric exam: Present: normal affect, normal mood Skin exam: Present: warm, dry, intact, normal color. Absent: rash Course Vital Signs 06/24/20 06/25/20 23:28 01:56 Temperature 98.5 F 98.7 F Pulse Rate 76 84 Respiratory 16 15 Rate Blood Pressure 164/86 151/74 O2 Sat by Pulse 100 98 Oximetry - Reevaluation(s) Reevaluation #1: Medical record is reviewed Patient symptoms improved here in the ER Patient family informed of results, questions have been answered Patient is in no distress able to bear weight and okay for discharge home Medical Decision Making - Medical Decision Making 20 male to the ER for evaluation patient presents today for evaluation regards to foot pain toe pain. X-rays are negative patient can be discharged home - Radiology Data Radiology results: report reviewed (X-ray of foot is negative for traumatic injury), image reviewed Disposition Clinical Impression: Left foot pain Disposition: HOME SELF-CARE Condition: Good Instructions (If sedation given, give patient instructions): Metatarsalgia (DC) Is patient prescribed a controlled substance at d/c from ED?: No Referrals: Linda Montana MD [Primary Care Provider] - 1-2 days
--- NOTE | 2020-06-25 01:08 | XR ---
EXAM: XR Left Foot Complete, 3 or More Views CLINICAL HISTORY: ITS.REASON XR Reason: pain TECHNIQUE: Frontal, lateral and oblique views of the left foot. COMPARISON: No relevant prior studies available. FINDINGS: Bones/joints: No acute fracture. No dislocation. Soft tissues: Unremarkable. No radiopaque foreign body. IMPRESSION: Normal left foot x-rays.
[2020-06-25 01:58] VITALS: BP 151/74; PULSE 84; RESP 15; TEMP 98.7
== END 2020-06-25 01:56 | disposition home or self-care (01) ==
LOC: EC 23:18
DX: M79.672 Pain in left foot (principal); M79.89 Other specified soft tissue disorders; R20.0 Anesthesia of skin; F17.200 Nicotine dependence, unspecified, uncomplicated; Z88.5 Allergy status to narcotic agent
CPT/HCPCS: 99283

== ENCOUNTER → 2020-10-08 | Outpatient (CLI) | payer MEDICARE, OTHER | END | disposition home or self-care (01) | DX: Q74.1 Congenital malformation of knee (principal) ==

== ENCOUNTER → 2021-08-23 | Outpatient (CLI) | payer MEDICARE, OTHER ==
[2021-08-23 12:56] LABS: ALT 7 U/L (10-49); AST 15 U/L (14-35); African American GFR (CKD) 164.3 (60.0-200.0); Albumin 4.5 g/dL (3.8-4.9); Albumin/Globulin Ratio 1.13 (1.60-3.17); Alkaline Phosphatase 83 U/L (41-126); BUN/Creat Ratio 17.67 Ratio (12.00-20.00); Blood Urea Nitrogen 10.6 mg/dL (9.0-27.0); Calcium 9.9 mg/dL (8.7-10.3); Carbon Dioxide 21.9 mmol/L (20.0-27.5); Chloride 104 mmol/L (96-109); Glucose 82 mg/dL (70-110); Non-African American GFR(CKD) 141.7 (60.0-200.0); Potassium 4.2 mmol/L (3.5-5.5); Sodium 140 mmol/L (135-145); Total Bilirubin <0.15 mg/dL (0.30-1.20); Total Protein 8.5 g/dL (6.2-8.2)
[2021-08-23 15:24] LABS: HCT 45.7 % (39.6-50.0); HGB 14.3 g/dL (13.0-17.0); Immature Platelet Fraction 4.8 % (1.1-6.1); MCHC 31.3 g/dL (32.0-37.0); MCV 86.2 fL (80.0-97.0); Mean Platelet Volume 10.2 fL (9.5-12.2); NRBC Per 100 WBC 0 /100 WBCS (0.0-0.0); Platelet Count 75 X 10*3/uL (140-440); RBC Morphology NORMAL; RDW 14.8 % (11.5-14.5); WBC 15.79 X 10*3/uL (4.50-10.00)
== END | disposition home or self-care (01) ==
LOC: LABWHC1 08-22 10:07
PROVIDERS: ATTEND Internal Medicine
DX: H53.8 Other visual disturbances (principal); R20.2 Paresthesia of skin
CPT/HCPCS: 36415; 80053; 84443; 85027

== ENCOUNTER 2023-05-01 14:36 | Emergency (ER) | payer MEDICARE, OTHER ==
[2023-05-01 15:11] VITALS: TEMP 99
[2023-05-01] MEDS ORDERED: KETOROLAC 15 MG/ML 1 ML VIAL IVP STA (15:18)
[2023-05-01] MEDS ORDERED: SODIUM CHLORIDE 0.9% 1,000 ML IV STA (15:18)
--- NOTE | 2023-05-01 15:24 | ED ---
Abdominal Pain HPI - General Chief Complaint: Abdominal Pain Stated Complaint: Abd. pain Time Seen by Provider: 05/01/23 15:07 Source: patient, RN notes reviewed Mode of arrival: ambulatory Limitations: no limitations - History of Present Illness Initial Comments: This is a 23-year-old male who presents to the emergency department for abdominal pain and back pain. States that over the last couple of months, he has been on 6 rounds of antibiotics for UTIs and has had multiple STD tests, which have returned negative. He continues to have mid back pain and lower abdominal pain as well as burning after he urinates. States that he's had fevers and nigh t sweats. He has also had intermittent bouts of nausea. Prior to the last couple of months, he has not had problems with urinary tract infections. He is taking Tylenol at home for pain relief, which has not been effective. MD Complaint: abdominal pain - Related Data Previous Rx's Medication Instructions Recorded Ciprofloxacin HCl [Cipro] 500 mg PO Q12H 5 Days #10 tab 07/28/18 Sulfamethox-Tmp 800-160Mg [Bactrim 1 each PO Q12HR #20 tab 10/30/19 DS 800-160 mg] Lidocaine 5% Patch [Lidoderm 5% 1 patch TOPICAL DAILY PRN #30 patch 05/01/23 Patch] methocarbamoL [Robaxin-750] 1,500 mg PO TID PRN #30 tab 05/01/23 Allergies Allergy/AdvReac Type Severity Reaction Status Date / Time morphine Allergy Unknown Verified 06/24/20 23:30 oxycodone [From OxyContin] Allergy Unknown Verified 06/24/20 23:30 Review of Systems ROS Statement: Those systems with pertinent positive or pertinent negative responses have been documented in the HPI. ROS Other: All systems not noted in ROS Statement are negative. Past Medical History Additional Past Medical History / Comment(s): absent radious syndrome. anemia History of Any Multi-Drug Resistant Organisms: None Reported Past Surgical History: Orthopedic Surgery Additional Past Surgical History / Comment(s): 8 ortho surgeries on BLLE (legs). Past Anesthesia/Blood Transfusion Reactions: No Reported Reaction Past Psychological History: No Psychological Hx Reported Smoking Status: Current every day smoker Past Alcohol Use History: Occasional Past Drug Use History: None Reported General Exam Limitations: no limitations General appearance: alert, in no apparent distress Head exam: Present: atraumatic, normocephalic, normal inspection Respiratory exam: Present: normal lung sounds bilaterally. Absent: respiratory distress, wheezes, rales, rhonchi, stridor Cardiovascular Exam: Present: regular rate, normal rhythm, normal heart sounds. Absent: systolic murmur, diastolic murmur, rubs, gallop, clicks GI/Abdominal exam: Present: soft, tenderness (generalized), normal bowel sounds. Absent: distended Back exam: Present: CVA tenderness (R), CVA tenderness (L) Neurological exam: Present: alert, oriented X3, CN II-XII intact Psychiatric exam: Present: normal affect, normal mood Skin exam: Present: warm, dry, intact, normal color. Absent: rash Course Vital Signs 05/01/23 05/01/23 05/01/23 14:46 16:42 17:50 Temperature 99 F Pulse Rate 93 76 84 Respiratory 16 18 18 Rate Blood Pressure 171/110 153/73 154/78 O2 Sat by Pulse 98 96 97 Oximetry Medical Decision Making - Medical Decision Making This is a 23-year-old male who presents to the emergency department for abdominal pain. Was pt. sent in by a medical professional or institution? @ -No Did you speak to anyone other than the patient for history? @ -No Did you review nursing and triage notes? @ -Yes, and I agree, it is accurate with regards to the patient's symptoms. Were old charts reviewed? @ -No Differential Diagnosis? @ -Differential Abdominal Pain Men: Appendicitis, cholecystitis, diverticulosis, ischemic bowel, pancreatitis, hepatitis, UTI, gastroenteritis, AAA, incarcerated hernia, bowel obstruction, constipation, inflammatory bowel, hepatitis, peptic ulcer disease, splenic infarction, perforated viscus, testicular torsion, this is not meant to be an all-inclusive list EKG interpreted by me (3pts min.)? @ -Not obtained X-rays interpreted by me (1pt min.)? @ -Not obtained CT interpreted by me (1pt min.)? @ -CT scan of the abdomen and pelvis obtained. My interpretation identifies no evidence of bowel wall thickening or free air. U/S interpreted by me (1pt. min.)? @ -Not obtained What testing was considered but not performed? (CT, X-rays, U/S, labs)? Why? @ -None What meds were considered but not given? Why? @ -None Did you discuss the management of the patient with other professionals? @ -No Did you reconcile home meds? @ -No Was smoking cessation discussed for >3mins.? @ -No Was critical care preformed (if so, how long)? @ -No Were there social determinants of health that impacted care today? How? (Homelessness, low income, unemployed, alcoholism, drug addiction, transportation, low edu. Level, literacy, decrease access to med. care, retirement, rehab)? @ -No Was there de-escalation of care discussed even if they declined? (Discuss DNR or withdrawal of care, Hospice)? @ -No What co-morbidities impacted this encounter? (DM, HTN, Smoking, COPD, CAD, Cancer, CVA, Hep., AIDS, mental health diagnosis, sleep apnea, morbid obesity)? @ -TAR syndrome Was patient admitted / discharged? @ -Discharged. Lab work obtained revealing mild leukocytosis and was otherwise unremarkable. Urinalysis negative for signs of infection. Computed tomography scan of the abdomen and pelvis obtained revealing no acute process. He was initially treated with IV fluids and Toradol without significant improvement in symptoms. Discussed with the patient the possibility of symptoms being musculoskeletal in nature, however there are genitourinary abnormalities known to be associated with TAR syndrome. He was given a dose of Norflex and a lidocaine patch, which he actually felt was substantially beneficial. Prescription for Robaxin and lidocaine patches provided with dosing instructions reviewed. He was also given information for urology follow-up in the event there is any component of this associated with the TAR syndrome. Patient discharged home in stable condition. Undiagnosed new problem with uncertain prognosis? @ -None Drug Therapy requiring intensive monitoring for toxicity (Heparin, Nitro, Insulin, Cardizem)? @ -None Were any procedures done? @ -None Diagnosis/symptom? @ -Abdominal pain, back pain Acute, or Chronic, or Acute on Chronic? @ -Acute Uncomplicated (without systemic symptoms) or Complicated (systemic symptoms)? @ -Uncomplicated Side effects of treatment? @ -None Exacerbation, Progression, or Severe Exacerbation] @ -Not applicable Poses a threat to life or bodily function? @ -No Return precautions reviewed in depth, the patient is instructed to return to the emergency department with any new, worsening, or concerning symptoms. Patient verbalized understanding. This case was discussed in detail with the attending ED physician, Dr. Jones. Presentation, findings, and treatment plan discussed in detail as well. - Lab Data Result diagrams: 05/01/23 15:38 05/01/23 15:38 Lab Results 05/01/23 05/01/23 05/01/23 Range/Units 15:38 15:38 15:38 WBC 11.3 H (3.8-10.6) k/uL RBC 4.28 L (4.30-5.90) m/uL Hgb 12.1 L (13.0-17.5) gm/dL Hct 36.0 L (39.0-53.0) % MCV 84.2 (80.0-100.0) fL MCH 28.3 (25.0-35.0) pg MCHC 33.6 (31.0-37.0) g/dL RDW 15.3 (11.5-15.5) % Plt Count 112 L (150-450) k/uL MPV 8.1 Neutrophils % 66 % Lymphocytes % 23 % Monocytes % 5 % Eosinophils % 3 % Basophils % 1 % Neutrophils # 7.5 (1.3-7.7) k/uL Lymphocytes # 2.6 (1.0-4.8) k/uL Monocytes # 0.5 (0-1.0) k/uL Eosinophils # 0.4 (0-0.7) k/uL Basophils # 0.1 (0-0.2) k/uL Sodium 141 (137-145) mmol/L Potassium 3.7 (3.5-5.1) mmol/L Chloride 110 H (98-107) mmol/L Carbon Dioxide 24 (22-30) mmol/L Anion Gap 7 mmol/L BUN 10 (9-20) mg/dL Creatinine 0.55 L (0.66-1.25) mg/dL Est GFR (CKD-EPI)AfAm >90 (>60 ml/min/1.73 sqM) Est GFR (CKD-EPI)NonAf >90 (>60 ml/min/1.73 sqM) Glucose 95 (74-99) mg/dL Plasma Lactic Acid [place] (0.7-2.0) mmol/L Calcium 9.4 (8.4-10.2) mg/dL Total Bilirubin 0.4 (0.2-1.3) mg/dL AST 23 (17-59) U/L ALT 15 (4-49) U/L Alkaline Phosphatase 63 (38-126) U/L Total Protein 7.3 (6.3-8.2) g/dL Albumin 4.2 (3.5-5.0) g/dL Amylase 73 (30-110) U/L Lipase 136 (23-300) U/L Urine Color Yellow Urine Appearance Clear (Clear) Urine pH 5.5 (5.0-8.0) Ur Specific [place] 1.032 (1.001-1.035) Urine Protein Negative (Negative) Urine Glucose (UA) Negative (Negative) Urine Ketones Negative (Negative) Urine Blood Negative (Negative) Urine Nitrite Negative (Negative) Urine Bilirubin Negative (Negative) Urine Urobilinogen 3.0 (<2.0) mg/dL Ur Leukocyte Esterase Negative (Negative) 05/01/23 Range/Units 15:38 WBC (3.8-10.6) k/uL RBC (4.30-5.90) m/uL Hgb (13.0-17.5) gm/dL Hct (39.0-53.0) % MCV (80.0-100.0) fL MCH (25.0-35.0) pg MCHC (31.0-37.0) g/dL RDW (11.5-15.5) % Plt Count (150-450) k/uL MPV Neutrophils % % Lymphocytes % % Monocytes % % Eosinophils % % Basophils % % Neutrophils # (1.3-7.7) k/uL Lymphocytes # (1.0-4.8) k/uL Monocytes # (0-1.0) k/uL Eosinophils # (0-0.7) k/uL Basophils # (0-0.2) k/uL Sodium (137-145) mmol/L Potassium (3.5-5.1) mmol/L Chloride (98-107) mmol/L Carbon Dioxide (22-30) mmol/L Anion Gap mmol/L BUN (9-20) mg/dL Creatinine (0.66-1.25) mg/dL Est GFR (CKD-EPI)AfAm (>60 ml/min/1.73 sqM) Est GFR (CKD-EPI)NonAf (>60 ml/min/1.73 sqM) Glucose (74-99) mg/dL Plasma Lactic Acid [place] 1.8 (0.7-2.0) mmol/L Calcium (8.4-10.2) mg/dL Total Bilirubin (0.2-1.3) mg/dL AST (17-59) U/L ALT (4-49) U/L Alkaline Phosphatase (38-126) U/L Total Protein (6.3-8.2) g/dL Albumin (3.5-5.0) g/dL Amylase (30-110) U/L Lipase (23-300) U/L Urine Color Urine Appearance (Clear) Urine pH (5.0-8.0) Ur Specific [place] (1.001-1.035) Urine Protein (Negative) Urine Glucose (UA) (Negative) Urine Ketones (Negative) Urine Blood (Negative) Urine Nitrite (Negative) Urine Bilirubin (Negative) Urine Urobilinogen (<2.0) mg/dL Ur Leukocyte Esterase (Negative) - Radiology Data Radiology results: report reviewed, image reviewed Disposition Clinical Impression: Back pain, Abdominal pain Disposition: HOME SELF-CARE Instructions (If sedation given, give patient instructions): Abdominal Pain (ED), Flank Pain (ED), Back Pain (ED) Additional Instructions: Return to the emergency department with any new, worsening, or concerning symptoms. Continue taking Tylenol as needed for pain relief. You can take the Robaxin as 1-2 tablets up to 3-4 times daily. Be aware that this may make you drowsy. You can also apply the lidocaine patches daily. Contact the urologist office as listed below. Follow up with your primary care provider in 1-2 days. Prescriptions: Lidocaine 5% Patch [Lidoderm 5% Patch] 1 patch TOPICAL DAILY PRN #30 patch PRN Reason: Pain methocarbamoL [Robaxin-750] 1,500 mg PO TID PRN #30 tab PRN Reason: Pain Is patient prescribed a controlled substance at d/c from ED?: No Referrals: None,Stated [Primary Care Provider] - 1-2 days Juan Morgan MD [STAFF PHYSICIAN] - 1-2 days Time of Disposition: 17:40
[2023-05-01 16:12] LABS: Potassium 3.7 mmol/L (3.5-5.1)
[2023-05-01 16:13] LABS: ALT 15 U/L (4-49); AST 23 U/L (17-59); African American GFR (CKD) >90 (>60 ml/min/1.73 sqM); Albumin 4.2 g/dL (3.5-5.0); Alkaline Phosphatase 63 U/L (38-126); Amylase 73 U/L (30-110); Anion Gap 7 mmol/L; Blood Urea Nitrogen 10 mg/dL (9-20); Calcium 9.4 mg/dL (8.4-10.2); Carbon Dioxide 24 mmol/L (22-30); Chloride 110 mmol/L (98-107); Glucose 95 mg/dL (74-99); Lipase 136 U/L (23-300); Non-African American GFR(CKD) >90 (>60 ml/min/1.73 sqM); Sodium 141 mmol/L (137-145); Total Bilirubin 0.4 mg/dL (0.2-1.3); Total Protein 7.3 g/dL (6.3-8.2)
[2023-05-01 16:15] LABS: Basophils # (A) 0.1 k/uL (0-0.2); Basophils % (A) 1 %; Eosinophils # (A) 0.4 k/uL (0-0.7); Eosinophils % (A) 3 %; HGB 12.1 gm/dL (13.0-17.5); Lymphocytes # (A) 2.6 k/uL (1.0-4.8); Lymphocytes % (A) 23 %; MCH 28.3 pg (25.0-35.0); MCHC 33.6 g/dL (31.0-37.0); MCV 84.2 fL (80.0-100.0); Mean Platelet Volume 8.1; Monocytes # (A) 0.5 k/uL (0-1.0); Monocytes % (A) 5 %; Neutrophils # (A) 7.5 k/uL (1.3-7.7); Neutrophils % (A) 66 %; Platelet Count 112 k/uL (150-450); RBC 4.28 m/uL (4.30-5.90); RDW 15.3 % (11.5-15.5); WBC 11.3 k/uL (3.8-10.6)
[2023-05-01 16:46] VITALS: RESP 18
--- NOTE | 2023-05-01 16:50 | CT ---
EXAMINATION TYPE: CT abdomen pelvis w con DATE OF EXAM: 05/01/2023 COMPARISON: 07/26/2018 INDICATION: Lower abdominal and back pain. Micro hematuria. Pain with urination. DLP: 417.2 mGycm, Automated exposure control for dose reduction was used. CONTRAST: 100ml mL of Isovue 300. Study performed without Oral Contrast TECHNIQUE: Axial images were obtained from above the diaphragm to the pubic rami in the axial plane a t 5 mm thick sections. Reconstructed images are reviewed on the computer in the coronal plane. FINDINGS: Limited CT sections are obtained the lung bases. The lung bases are clear. CT ABDOMEN: Liver: Normal Spleen: Normal Pancreas: Normal Adrenal glands: The adrenal glands are normal. Gallbladder: Normal Kidneys: Right kidney is absent. Left kidney is prominent. No hydronephrosis is present. No cysts a re present. Delayed images were obtained through the kidney, which remain unremarkable. Aorta: Vascular calcification is within the aorta. Inferior vena cava: Normal. CT PELVIS: Loops of bowel within the abdomen and pelvis are normal. There are loops of bowel which are incom pletely distended or lack oral contrast limiting their evaluation. Appendix: Not Visualized. No dilated tubular structure or inflammatory change is evident. Urinary bladder: Decompressed limiting evaluation. Genitourinary structures: Prostate appears unremarkable. Osseous structures: No suspicious lytic or sclerotic lesions. IMPRESSION: 1. No suspicious acute changes
[2023-05-01 16:51] LABS: Appearance,Urine Clear (Clear); Bilirubin,Urine Negative (Negative); Blood,Urine Negative (Negative); Color,Urine Yellow; Glucose,Urine (UA) Negative (Negative); Ketones,Urine Negative (Negative); Leukocyte Esterase,Urine Negative (Negative); Nitrite,Urine Negative (Negative); PH, Urine 5.5 (5.0-8.0); Protein,Urine Negative (Negative); Specific Gravity,Urine 1.032 (1.001-1.035)
[2023-05-01] MEDS ORDERED: LIDOCAINE 4% PATCH TOPICAL ONE (17:20)
[2023-05-01] MEDS ORDERED: ORPHENADRINE 30 MG/ML 2 ML VIAL IVP STA (17:20)
[2023-05-01] MEDS ORDERED: traMADol 50 MG STARTER PACK 3 TAB BTL PO STA (17:35)
[2023-05-01 17:57] VITALS: BP 154/78; PULSE 84
== END 2023-05-01 17:54 | disposition home or self-care (01) ==
LOC: EC 14:36
DX: M54.9 Dorsalgia, unspecified (principal); R10.30 Lower abdominal pain, unspecified; F17.200 Nicotine dependence, unspecified, uncomplicated; Z88.5 Allergy status to narcotic agent; Z88.8 Allergy status to other drugs, medicaments and biological substances
CPT/HCPCS: 36415; 80053; 82150; 83605; 83690; 85025; 81003; 74177; 99284; 96374; 96375; 96361; J2360; J1885